=== PATIENT | male | born 1995 | race Hispanic/Latino ===

== ENCOUNTER 2017-04-15 00:27 | Emergency (ER) | payer OTHER ==
[2017-04-15] MEDS ORDERED: Fluorescein Opthalmic Strip ONE (00:33)
[2017-04-15] MEDS ORDERED: Proparacaine 0.5% Opth 15 ML BOT ONE (00:33)
== END 2017-04-15 00:49 | disposition home or self-care (01) ==
LOC: SCSER 00:27
DX: H18.822 Corneal disorder due to contact lens, left eye (principal)
CPT/HCPCS: 99283